=== PATIENT | male | born 1955 | race Caucasian/White ===

== ENCOUNTER 2019-06-01 12:19 | Day surgery (SDC) | payer MEDICARE, OTHER ==
[~2019-06-01] VITALS: Ht 182.9 cm; Wt 86.1 kg
[~2019-06-01 12:19] MED LIST: CEPH500 PO; Crutch1 EACH MISC; DOXA4; DULO60; GABA300; HYDACE5 PO; HYDACE7.5; IBUP200; IBUP600 PO; INDO25 PO; LEVO750; LOSA25 PO; METO100ER; MUPI2TC; NAPR500 PO; Norvasc10 MG; Omeprazole20 M1; Omeprazole20 M1 PO; PANT40; PRED5; Percocet 5-3251 EACH PO; SULTRIDS PO; SULTRISS; TRAM50 PO
== END 2019-06-01 14:40 | disposition home or self-care (01) ==
LOC: ORSCSDS 12:19
PROVIDERS: Internal Medicine Gastroenterology
PROC: 0DB68ZX Excision of Stomach, Via Natural or Artificial Opening Endoscopic, Diagnostic (ICD-10-PCS; principal; 2019-06-01 13:45)
DX: K74.60 Unspecified cirrhosis of liver (principal); K76.0 Fatty (change of) liver, not elsewhere classified; K22.2 Esophageal obstruction; K76.6 Portal hypertension; K31.89 Other diseases of stomach and duodenum; F17.210 Nicotine dependence, cigarettes, uncomplicated; Z79.899 Other long term (current) drug therapy
CPT/HCPCS: 87081; 88305; 88342; J2704; J7120

== ENCOUNTER 2020-05-12 07:14 | Day surgery (SDC) | payer OTHER ==
[~2020-05-12] VITALS: Ht 180.3 cm; Wt 88.0 kg
[~2020-05-12 07:14] MED LIST changes: +AMLO10 PO; +Aspirin EC81 MG PO; +Cilostazol100 MG PO; -DULO60; +DULO60 PO; -GABA300; +GABA300 PO; -LOSA25 PO; +LOSA50 PO; +MELO7.5; -METO100ER; +METO100ER PO; +MOBIC15 MG PO; -Norvasc10 MG; -PANT40; +PANT40 PO; -PRED5; +PRED5 PO
[2020-05-12 08:17] LABS: BASOPHILS PERCENT AUTO 1 % (0-2); EOSINOPHILS ABSOLUTE AUTO 0.28 K/mm3 (0.00-0.68); EOSINOPHILS PERCENT AUTO 2 % (0-6); Hematocrit 33.6 % (37.0-53.0); Hemoglobin 10.9 g/dL (13.5-17.5); IMMATURE GRAN ABSOLUTE AUTO 0.09 K/mm3 (0.00-0.10); IMMATURE GRAN PERCENT AUTO 1 % (0-1); LYMPHOCYTES ABSOLUTE AUTO 1.85 K/mm3 (0.84-5.20); LYMPHOCYTES PERCENT AUTO 13 % (21-46); MONOCYTES ABSOLUTE AUTO 0.98 K/mm3 (0.16-1.47); MONOCYTES PERCENT AUTO 7 % (4-13); Mean Corpuscular HGB 29.1 pg (26.0-34.0); Mean Corpuscular HGB Conc 32.4 g/dL (31.5-36.5); Mean Corpuscular Volume 90 fL (80-100); Mean Platelet Volume 8.6 fL (9.1-12.4); NEUTROPHILS ABSOLUTE AUTO 11.42 K/mm3 (1.96-9.15); NEUTROPHILS PERCENT AUTO 78 % (41-73); Platelet Count 350 K/mm3 (150-400); RDW Standard Deviation 45.9 fL (35.1-46.3); Red Blood Cell Count 3.75 M/mm3 (4.30-5.90); White Blood Cell Count 14.72 K/mm3 (4.00-11.30)
[2020-05-12 08:30] LABS: International Normalized Ratio 1.06; Prothrombin Time Results 11.3 Sec (9.7-11.5)
[2020-05-12 08:34] LABS: Anion Gap 7 mmol/L (6-16); Blood Urea Nitrogen 9 mg/dL (8-24); Bun/Creatinine Ratio 10.8 (12.0-20.0); CO2, Blood 26 mmol/L (21-32); Calcium, Blood 8.8 mg/dL (8.5-10.1); Chloride, Blood 97 mmol/L (98-108); Creatinine, Blood 0.83 mg/dL (0.60-1.20); Glomerular Filtration Rate >60 (60-); Glucose, Blood 102 mg/dL (70-99); Sodium, Blood 130 mmol/L (136-145)
--- NOTE | 2020-05-12 10:59 | NUR ---
1045 PATIENT RETURNED FROM THE [facility] S/P PERIPHERAL ANGIOGRAM VIA RIGHT RADIAL ARTERY. TR BAND IN PLACE WITH 12 ML OF AIR IN THE BAND, PLACED AT 1030. NO PAIN NOTED FORM THE PATIENT. PATIENT SITTING UP IN A RECLINER AND PLACE ON THE MONITOR.
--- NOTE | 2020-05-12 12:42 | NUR ---
1235 STARTED REMOVING AIR FROM THE TR BAND. NO BLEEDING NOTED.
--- NOTE | 2020-05-12 13:07 | NUR ---
1300 ALL AIR REMOVED FROM THE BAND. NO BLEEDING FROM THE WRIST NOTED. VVS. DR. HUIZAR AT THE [facility] AND SPOKE WITH THE PATIENT ABOUT HIS RESULTS AND THE PLAN OF CARE.
--- NOTE | 2020-05-12 13:10 | NUR ---
1310 REIVEWED ALL DISCHARGE INSTRUCTIONS WITH THE PATIENT AND ALL QUESTIOSN ANSWERED. PATIENT SIGNED ALL PAPERWORK. PIV REMOVED FROM THE LEFT AC, CATHETER INTACT. PRESSURE DRESSING APPLIED.
--- NOTE | 2020-05-12 13:35 | NUR ---
7555 PATIENT DRESSED AND ALL BELONGINGS GATHERED. DISCHARGE INSTRUCTIONS IN HAND AND PATIENT DISCHARGED HOME. WHEEL CHAIRED TO THE EXIT AND MET DAUGHTER TO DRIVE HIM HOME.
== END 2020-05-12 13:00 | disposition home or self-care (01) ==
LOC: MHTC 07:14
PROVIDERS: Internal Medicine Interventional Cardiology
DX: I70.213 Atherosclerosis of native arteries of extremities with intermittent claudication, bilateral legs (principal); I10 Essential (primary) hypertension; E78.5 Hyperlipidemia, unspecified; J45.909 Unspecified asthma, uncomplicated; Z79.899 Other long term (current) drug therapy; Z79.52 Long term (current) use of systemic steroids; Z79.82 Long term (current) use of aspirin
CPT/HCPCS: 36245; 75630; 75774; 76937; 80048; 85025; 85347; 85610; 99152; 99153; C1769; C1887; C1894; J1644; J2250; J3010; J7030; J7040; Q9967

== ENCOUNTER → 2020-07-21 | Outpatient (CLI) | payer OTHER ==
[2020-07-23 06:13] LABS: Stool Occult Bld Immuno 1 Negative (NEGATIVE); Stool Occult Bld Immuno 2 Negative (NEGATIVE)
== END | disposition home or self-care (01) ==
LOC: LAB 12:41 → LAB SHORT 12:41
PROVIDERS: Internal Medicine Gastroenterology
DX: D64.9 Anemia, unspecified (principal); Z79.899 Other long term (current) drug therapy
CPT/HCPCS: G0328

== ENCOUNTER 2020-07-22 06:32 | Day surgery (SDC) | payer OTHER ==
[~2020-07-22] VITALS: Ht 182.9 cm; Wt 88.0 kg
--- NOTE | 2020-07-22 10:35 | NUR ---
PT TR BAND FULLY DEFLATED FROM R RADIAL. VSS. NADN. NO BLEEDING OR HEMATOMA NOTED. PT VERBALIZES UNDERSTANDING WRITTEN AND VERBAL INSTRUCTIONS. CALL LIGHT WITHIN REACH.
--- NOTE | 2020-07-22 11:00 | NUR ---
PT AMBULATES TO RESTROOM AND BACK WITHOUT DIFF. VSS. NADN
--- NOTE | 2020-07-22 11:08 | NUR ---
PT TR BAND REMOVED. NO BLEEDING OR HEMATOMA NOTED. DOT DRESSING APPLIED. VSS. NADN. PT DENIES NEEDS. PT VERBALIZES UNDERSTANDING WRITTEN AND VERBAL ORDERS. PT DC TO HOME VIA WC BY DIAL A RIDE. PT DAUGHTER WILL BE AVAIL LATER FOR ANY ASSISTANCE.
== END 2020-07-22 11:15 | disposition home or self-care (01) ==
LOC: MHTC 06:32
PROC: 4A023N7 Measurement of Cardiac Sampling and Pressure, Left Heart, Percutaneous Approach (ICD-10-PCS; principal; 2020-07-22)
PROC: B201YZZ Plain Radiography of Multiple Coronary Arteries using Other Contrast (ICD-10-PCS; principal; 2020-07-22)
DX: I25.10 Atherosclerotic heart disease of native coronary artery without angina pectoris (principal); I70.213 Atherosclerosis of native arteries of extremities with intermittent claudication, bilateral legs; E78.5 Hyperlipidemia, unspecified; I10 Essential (primary) hypertension; J45.909 Unspecified asthma, uncomplicated; F17.210 Nicotine dependence, cigarettes, uncomplicated; I70.92 Chronic total occlusion of artery of the extremities; Z79.899 Other long term (current) drug therapy; Z79.82 Long term (current) use of aspirin; Z88.8 Allergy status to other drugs, medicaments and biological substances
CPT/HCPCS: 76937; 85347; 93005; 93010; 93458; 99152; C1769; C1894; J1644; J2250; J3010; J7030; J7050; Q9967

== ENCOUNTER 2021-03-02 00:19 | Day surgery (SDC) | payer OTHER ==
[~2021-03-02 00:19] MED LIST changes: +ATOR20 PO; +B-1100 M1 PO; +DOXAZOSIN MESYLA4 MG PO; -LOSA50 PO; +LOSARTAN POTAS100 M1 PO; +PANT20 PO; +PLAVIX75 MG PO; +ROSUVASTATIN CA20 MG PO
== END 2021-03-02 22:47 | disposition home or self-care (01) ==
LOC: WOUND 00:19
DX: T81.31XD Disruption of external operation (surgical) wound, not elsewhere classified, subsequent encounter (principal); F17.210 Nicotine dependence, cigarettes, uncomplicated; Z88.8 Allergy status to other drugs, medicaments and biological substances
CPT/HCPCS: A9270; G0463

== ENCOUNTER → 2021-03-04 | Outpatient (CLI) | payer OTHER ==
[~2021-03-04] MED LIST changes: +Norco 7.5-3251 EACH PO; +SUCR1 PO
[2021-03-04 13:57] LABS: Source, Urine Clean Catch
[2021-03-04 14:48] LABS: Appearance, Urine Cloudy (Clear); Blood, Urine 3+ (Neg); Color, Urine Yellow (P-Yellow); Glucose Qualitative, Urine Neg (Neg); Ketones, Urine 1+ (Neg); Leukocyte Esterase, Urine 3+ (Neg); Nitrite, Urine Neg (Neg); Protein, Urine 2+ (Neg); Urobilinogen, Urine 3+ (Normal)
[2021-03-04 14:59] LABS: Bilirubin, Urine 2+ (Neg); White Blood Cells, Urine TNTC /hpf (0-5)
[2021-03-04 15:00] LABS: Bacteria Many /hpf; Squamous Epithelial Cells Few /hpf (Few)
== END | disposition home or self-care (01) ==
LOC: LAB 13:43 → LAB SHORT 13:43 → LAB FUT 06-03 12:25
PROVIDERS: Physician Assistant Surgical
DX: N39.0 Urinary tract infection, site not specified (principal)
CPT/HCPCS: 81001; 87077; 87086; 87186

== ENCOUNTER 2021-03-10 03:05 | Day surgery (SDC) | payer OTHER ==
[~2021-03-10 03:05] MED LIST changes: -Norco 7.5-3251 EACH PO; -SUCR1 PO
== END 2021-03-10 23:02 | disposition home or self-care (01) ==
LOC: WOUND 03:05
DX: T81.31XD Disruption of external operation (surgical) wound, not elsewhere classified, subsequent encounter (principal); S31.105S Unspecified open wound of abdominal wall, periumbilic region without penetration into peritoneal cavity, sequela; X58.XXXS Exposure to other specified factors, sequela
CPT/HCPCS: G0463

== ENCOUNTER 2021-03-17 04:51 | Day surgery (SDC) | payer OTHER ==
[2021-03-17] MEDS ORDERED: PANT40 PO (19:27)
[2021-03-17] MEDS ORDERED: SUCR1 PO (20:45)
[2021-03-17] MEDS ORDERED: Norco 7.5-3251 EACH PO (20:45)
== END 2021-03-17 23:39 | disposition home or self-care (01) ==
LOC: WOUND 04:51
DX: T81.31XD Disruption of external operation (surgical) wound, not elsewhere classified, subsequent encounter (principal); S31.105S Unspecified open wound of abdominal wall, periumbilic region without penetration into peritoneal cavity, sequela; X58.XXXS Exposure to other specified factors, sequela
CPT/HCPCS: G0463

== ENCOUNTER 2021-03-17 14:08 | Emergency (ER) | payer OTHER ==
[~2021-03-17] VITALS: Ht 175.3 cm; Wt 68.0 kg
[2021-03-17 14:52] LABS: BASOPHILS PERCENT AUTO 1 % (0-2); EOSINOPHILS ABSOLUTE AUTO 0.23 K/mm3 (0.00-0.68); EOSINOPHILS PERCENT AUTO 2 % (0-6); Hematocrit 29.7 % (37.0-53.0); Hemoglobin 9.8 g/dL (13.5-17.5); IMMATURE GRAN ABSOLUTE AUTO 0.07 K/mm3 (0.00-0.10); IMMATURE GRAN PERCENT AUTO 1 % (0-1); LYMPHOCYTES ABSOLUTE AUTO 3.14 K/mm3 (0.84-5.20); LYMPHOCYTES PERCENT AUTO 25 % (21-46); MONOCYTES PERCENT AUTO 9 % (4-13); Mean Corpuscular HGB 27.1 pg (26.0-34.0); Mean Corpuscular Volume 82 fL (80-100); Mean Platelet Volume 9.2 fL (9.1-12.4); NEUTROPHILS ABSOLUTE AUTO 8.03 K/mm3 (1.96-9.15); NEUTROPHILS PERCENT AUTO 63 % (41-73); Platelet Count 461 K/mm3 (150-400); RDW Coefficient Variation 18.4 % (11.7-14.2); RDW Standard Deviation 54.4 fL (35.1-46.3); Red Blood Cell Count 3.62 M/mm3 (4.30-5.90); White Blood Cell Count 12.67 K/mm3 (4.00-11.30)
[2021-03-17 15:12] LABS: Alanine Aminotransfer (ALT/SGP 59 U/L (12-78); Albumin, Blood 2.1 g/dL (3.4-5.0); Albumin/Globulin Ratio 0.4 (0.8-1.8); Alk Phos 138 U/L (50-136); Anion Gap 7 mmol/L (6-16); Aspartate Aminotrans (AST/SGOT 71 U/L (12-37); Bilirubin, Total 0.6 mg/dL (0.1-1.0); Blood Urea Nitrogen 7 mg/dL (8-24); Bun/Creatinine Ratio 9.2 (12.0-20.0); CO2, Blood 24 mmol/L (21-32); Calcium, Blood 8.5 mg/dL (8.5-10.1); Chloride, Blood 101 mmol/L (98-108); Creatinine, Blood 0.76 mg/dL (0.60-1.20); Globulin, Blood 5.2 g/dL (2.2-4.0); Glomerular Filtration Rate >60 (60-); Glucose, Blood 95 mg/dL (70-99); Potassium, Blood 4.3 mmol/L (3.5-5.5); Sodium, Blood 132 mmol/L (136-145); Total Protein, Blood 7.3 g/dL (6.4-8.2); Troponin I <0.015 ng/mL (0.000-0.040)
[2021-03-17] MEDS ORDERED: PANT40 PO (19:27)
[2021-03-17] MEDS ORDERED: Norco 7.5-3251 EACH PO (20:45)
[2021-03-17] MEDS ORDERED: SUCR1 PO (20:45)
[2021-03-18 00:45] LABS: Calcium, Ionized (POC) 0.94 mmol/L (1.10-1.46); Chloride (POC) 98 mmol/L (98-108); Creatinine (POC) 0.6 mg/dL (0.8-1.3); Glucose (ISTAT POC) 86 mg/dL (70-99); Hemoglobin (POC) 9.5 g/dL (13.5-17.5); Potassium (POC) 7.6 mmol/L (3.5-5.5); Sodium (POC) 129 mmol/L (135-148); Total CO2 (POC) 30 mmol/L (21-32)
[2021-03-18 00:58] LABS: Anion Gap 5 mmol/L (6-16); Blood Urea Nitrogen 7 mg/dL (8-24); Bun/Creatinine Ratio 10.4 (12.0-20.0); CO2, Blood 26 mmol/L (21-32); Calcium, Blood 8.2 mg/dL (8.5-10.1); Chloride, Blood 99 mmol/L (98-108); Creatinine, Blood 0.67 mg/dL (0.60-1.20); Glomerular Filtration Rate >60 (60-); Glucose, Blood 97 mg/dL (70-99); Potassium, Blood 3.8 mmol/L (3.5-5.5); Sodium, Blood 130 mmol/L (136-145)
== END 2021-03-18 01:37 | disposition home or self-care (01) ==
LOC: ER 14:08
PROVIDERS: Emergency Medicine; Physician Assistant
DX: R42 Dizziness and giddiness (principal); I10 Essential (primary) hypertension; F17.200 Nicotine dependence, unspecified, uncomplicated; Z88.8 Allergy status to other drugs, medicaments and biological substances; Z79.899 Other long term (current) drug therapy
CPT/HCPCS: 80047; 80048; 80053; 83880; 84484; 85014; 85025; 93005; 93010; 99284-25; J7030

== ENCOUNTER 2021-03-27 04:13 | Day surgery (SDC) | payer OTHER ==
[~2021-03-27 04:13] MED LIST changes: +Norco 7.5-3251 EACH PO; +SUCR1 PO
== END 2021-03-28 00:31 | disposition home or self-care (01) ==
LOC: WOUND 04:13
DX: T81.31XD Disruption of external operation (surgical) wound, not elsewhere classified, subsequent encounter (principal); S31.105S Unspecified open wound of abdominal wall, periumbilic region without penetration into peritoneal cavity, sequela; X58.XXXS Exposure to other specified factors, sequela; I72.3 Aneurysm of iliac artery
CPT/HCPCS: G0463

== ENCOUNTER 2021-09-18 22:28 | Inpatient (IN) | payer OTHER ==
[~2021-09-18] VITALS: Ht 180.3 cm; Wt 76.3 kg
[2021-09-18 23:02] LABS: BASOPHILS ABSOLUTE AUTO 0.09 K/mm3 (0.00-0.23); BASOPHILS PERCENT AUTO 1 % (0-2); EOSINOPHILS PERCENT AUTO 1 % (0-6); Hematocrit 25.3 % (37.0-53.0); Hemoglobin 8.4 g/dL (13.5-17.5); IMMATURE GRAN ABSOLUTE AUTO 0.13 K/mm3 (0.00-0.10); IMMATURE GRAN PERCENT AUTO 1 % (0-1); LYMPHOCYTES ABSOLUTE AUTO 2.98 K/mm3 (0.84-5.20); LYMPHOCYTES PERCENT AUTO 18 % (21-46); MONOCYTES ABSOLUTE AUTO 1.35 K/mm3 (0.16-1.47); MONOCYTES PERCENT AUTO 8 % (4-13); Mean Corpuscular HGB Conc 33.2 g/dL (31.5-36.5); Mean Corpuscular Volume 102 fL (80-100); Mean Platelet Volume 9.2 fL (9.1-12.4); NEUTROPHILS ABSOLUTE AUTO 12.24 K/mm3 (1.96-9.15); NEUTROPHILS PERCENT AUTO 73 % (41-73); Platelet Count 377 K/mm3 (150-400); RDW Coefficient Variation 14.4 % (11.7-14.2); RDW Standard Deviation 52.8 fL (35.1-46.3); Red Blood Cell Count 2.47 M/mm3 (4.30-5.90); White Blood Cell Count 16.89 K/mm3 (4.00-11.30)
[2021-09-18 23:16] LABS: Alanine Aminotransfer (ALT/SGP 21 U/L (12-78); Albumin, Blood 1.8 g/dL (3.4-5.0); Albumin/Globulin Ratio 0.4 (0.8-1.8); Alk Phos 153 U/L (50-136); Anion Gap 7 mmol/L (6-16); Aspartate Aminotrans (AST/SGOT 29 U/L (12-37); Bilirubin, Total 0.5 mg/dL (0.1-1.0); Blood Urea Nitrogen 22 mg/dL (8-24); Bun/Creatinine Ratio 39.5 (12.0-20.0); CO2, Blood 27 mmol/L (21-32); Calcium, Blood 8.1 mg/dL (8.5-10.1); Chloride, Blood 102 mmol/L (98-108); Creatinine, Blood 0.56 mg/dL (0.60-1.20); Globulin, Blood 4.4 g/dL (2.2-4.0); Glomerular Filtration Rate >60 (60-); Glucose, Blood 140 mg/dL (70-99); Potassium, Blood 4.7 mmol/L (3.5-5.5); Sodium, Blood 136 mmol/L (136-145); Total Protein, Blood 6.2 g/dL (6.4-8.2)
[2021-09-19] LABS: International Normalized Ratio 1.14; Prothrombin Time Results 11.9 Sec (9.7-11.5)
[2021-09-19 00:52] LABS: Influenza A, PCR NEGATIVE (NEGATIVE); Influenza B, PCR NEGATIVE (NEGATIVE); Resp Syncytial Virus, PCR NEGATIVE (NEGATIVE); SARS-Cov-2 (COVID-19) PCR, MMC NEGATIVE (NEGATIVE)
[2021-09-19 02:15] LABS: BASOPHILS ABSOLUTE AUTO 0.09 K/mm3 (0.00-0.23); BASOPHILS PERCENT AUTO 1 % (0-2); EOSINOPHILS ABSOLUTE AUTO 0.01 K/mm3 (0.00-0.68); EOSINOPHILS PERCENT AUTO 0 % (0-6); Hematocrit 23.4 % (37.0-53.0); Hemoglobin 7.9 g/dL (13.5-17.5); IMMATURE GRAN PERCENT AUTO 2 % (0-1); LYMPHOCYTES ABSOLUTE AUTO 2.32 K/mm3 (0.84-5.20); LYMPHOCYTES PERCENT AUTO 13 % (21-46); MONOCYTES ABSOLUTE AUTO 1.03 K/mm3 (0.16-1.47); MONOCYTES PERCENT AUTO 6 % (4-13); Mean Corpuscular HGB 34.1 pg (26.0-34.0); Mean Corpuscular HGB Conc 33.8 g/dL (31.5-36.5); Mean Corpuscular Volume 101 fL (80-100); Mean Platelet Volume 9.4 fL (9.1-12.4); NEUTROPHILS ABSOLUTE AUTO 14.43 K/mm3 (1.96-9.15); NEUTROPHILS PERCENT AUTO 79 % (41-73); Platelet Count 361 K/mm3 (150-400); RDW Coefficient Variation 14.4 % (11.7-14.2); RDW Standard Deviation 51.7 fL (35.1-46.3); Red Blood Cell Count 2.32 M/mm3 (4.30-5.90); White Blood Cell Count 18.18 K/mm3 (4.00-11.30)
[2021-09-19 06:21] LABS: Hematocrit 21.7 % (37.0-53.0); Hemoglobin 7.3 g/dL (13.5-17.5)
[2021-09-19 06:50] LABS: Alanine Aminotransfer (ALT/SGP 18 U/L (12-78); Albumin, Blood 1.9 g/dL (3.4-5.0); Albumin/Globulin Ratio 0.5 (0.8-1.8); Alk Phos 137 U/L (50-136); Anion Gap 8 mmol/L (6-16); Aspartate Aminotrans (AST/SGOT 24 U/L (12-37); Bilirubin, Total 0.6 mg/dL (0.1-1.0); Blood Urea Nitrogen 30 mg/dL (8-24); Bun/Creatinine Ratio 41.2 (12.0-20.0); CO2, Blood 26 mmol/L (21-32); Calcium, Blood 8.4 mg/dL (8.5-10.1); Chloride, Blood 102 mmol/L (98-108); Creatinine, Blood 0.73 mg/dL (0.60-1.20); Globulin, Blood 3.6 g/dL (2.2-4.0); Glomerular Filtration Rate >60 (60-); Glucose, Blood 151 mg/dL (70-99); Potassium, Blood 5.2 mmol/L (3.5-5.5); Sodium, Blood 136 mmol/L (136-145); Total Protein, Blood 5.5 g/dL (6.4-8.2)
--- NOTE | 2021-09-19 07:22 | NUR ---
PT ARRIVED ON THE UNIT AT 0500 AND WAS VOMITING BROWN EMESIS. PT. AOX4 AND HAD 3 LOOSE STOOLS WITH BLOOD. PT. IS NPO AND TIRED BUT ABLE TO ANSWER MOST ASSESSMENT/ADMISSION QUESTIONS. PT. DENIES ANY NEEDS AT THE MOMENT AND BELONGINGS AT BEDSIDE WITH THE PT. REPORT GIVEN.
[2021-09-19 10:13] LABS: Hematocrit 18.4 % (37.0-53.0)
--- NOTE | 2021-09-19 10:57 | NUR ---
PT OFF FLOOR FOR PROCEDURE PT TAKEN DOWN BY REBEL TO HAVE EGD.
--- NOTE | 2021-09-19 11:16 | NUR ---
09/19/21 1116 Brenton Honeycutt History, Chart, Medications and Allergies reviewed before start of procedure. Patient confirms NPO status and agrees with scheduled surgery. 3-LEAD EKG REVIEWED WITH PHYSICIAN PRIOR TO START OF PROCEDURE. MONITOR INTACT WITH CONTINUOUS PULSE OXIMETRY AND INTERMITTENT BP. PATIENT DETERMINED TO BE ASA APPROPRIATE FOR PROPOFOL SEDATION PRIOR TO START OF PROCEDURE BY DR. MACIAS.
--- NOTE | 2021-09-19 12:09 | NUR ---
TRANSFERING TO PCU PT NOT COMING BACK TO MED FLOOR POST EGD PROCEDURE. HGB OF 6. TRANSFERING TO PCU. REPORT CALLED TO LUCY DANIEL. BELONGINGS GATHERED AND TRANSPORTED TO PCU FOR PT.
--- NOTE | 2021-09-19 12:44 | NUR ---
ARRIVAL TO PCU PATIENT ARRIVED TO PCU APROX 1215 FROM DAY SURGERY.PATIENT IA A/OX4. VSS. MD BURDEN INTO SEE PATIENT, AND AN ORDER FOR 2 UNITS OF BLOOD TO BE TRANSFUSED WAS PUT IN. AWAITING BLOOD TO ARRIVE. PATIENT REPORTS NO CHEST PAIN, PAIN, OR SOB. MED FLOOR LUCY PURVIS IS GOING TO CALL FAMILY TO NOTIFY OF NEW ROOM. BED IN LOWEST POSITION AND CALL LIGHT WITHIN REACH. WILL CONTINUE TO MONITOR AND PROVIDE CARE.
--- NOTE | 2021-09-19 13:03 | NUR ---
FIRST UNIT OF PRBC FIRST UNIT OF PRBC STARTED, WENT OVER SIGNS AND SYMPTOMS OF A BLOOD TRANSFUSION REACTION. PROVIDED EDUCATION TO WHY THE BLOOD TRANSFUSION IS BEING DONE. WILL CONTINUE TO MONITOR AND PROVIDE CARE.
--- NOTE | 2021-09-19 16:17 | NUR ---
2ND BLOOD TRANSFUSING THIS RN STOPPED THE FIRST TRANSFUSION. NO COMPLICATIONS FOR THE FIRST TRANSFUSION. ENDED AT 1610 APROX, ACTUAL TIME DOCUMENTATED IN TRANSFUSIONS. THIS RN STARTED TRANFUSION AT 1615 AND WAS DOUBEL CHECKED WITH ELLEN AYALA. PATIENT EDUCATED ON TRANSFUSION REACTIONS AND THIS RN WILL BE WITH PATIENT THE FIRST 15 MINS.
--- NOTE | 2021-09-19 17:11 | NUR ---
REPORT TO [facility] RN THIS RN GAVE REPORT TO DEEPA RN AT [facility]. THIS RN INFORMED HIM THAT EMS WILL BE HERE IN APROX 30 MINS TO NURSING EDUCATOR THE PATIENT.
--- NOTE | 2021-09-19 17:52 | NUR ---
TRANSFER EMS ARRIVED FOR PATIENT AND TOOK PATIENT VIA GURNY. PATIENT BELONINGS WITH EMS. DAUGHTER WALKED OUT WITH EMS. REPORT GIVEN TO EMS TEAM. PAPERS WITH PATIENT FOR TRANSFER.
== END 2021-09-19 17:54 | disposition short-term general hospital (02) | DRG 379 ==
LOC: ER 22:28 → MEDS 09-19 02:38 → PCU 09-19 12:11
PROVIDERS: Family Medicine; Internal Medicine Gastroenterology; Student in an Organized Health Care Education/Training Program; ADMIT Internal Medicine
PROC: 0DJ08ZZ Inspection of Upper Intestinal Tract, Via Natural or Artificial Opening Endoscopic (ICD-10-PCS; 2021-09-19)
PROC: 30233N1 Transfusion of Nonautologous Red Blood Cells into Peripheral Vein, Percutaneous Approach (ICD-10-PCS; principal; 2021-09-19 12:30)
DX: K92.1 Melena (principal); K70.30 Alcoholic cirrhosis of liver without ascites; G89.29 Other chronic pain; I10 Essential (primary) hypertension; Z88.8 Allergy status to other drugs, medicaments and biological substances; F10.10 Alcohol abuse, uncomplicated; I73.9 Peripheral vascular disease, unspecified; F17.210 Nicotine dependence, cigarettes, uncomplicated; M19.90 Unspecified osteoarthritis, unspecified site; Z98.890 Other specified postprocedural states; I25.10 Atherosclerotic heart disease of native coronary artery without angina pectoris; Z95.1 Presence of aortocoronary bypass graft; Z79.899 Other long term (current) drug therapy; D64.9 Anemia, unspecified
CPT/HCPCS: 0241U; 36415; 36430; 80053; 82105; 82140; 82272; 85014; 85018; 85025; 85610; 85730; 86850; 86900; 86901; 86923; 93005; 93010; 96365; 96366; 96367; 96368; 96375; 99285-25; A9270; C9113; J0696; J2250; J2354; J2704; J2765; J7030; J7050; J7120; P9016; P9046

== ENCOUNTER → 2023-08-19 | Outpatient (CLI) | payer OTHER ==
[~2023-08-19] MED LIST changes: +LOSA50 PO
[2023-08-19 14:45] LABS: Stool Occult Bld Immuno 1 Negative (NEGATIVE); Stool Occult Bld Immuno 2 Negative (NEGATIVE)
== END ==
LOC: LAB SHORT 12:29 → LAB 12:29
PROVIDERS: Internal Medicine Gastroenterology
DX: Z12.11 Encounter for screening for malignant neoplasm of colon (principal)
CPT/HCPCS: 82274

== ENCOUNTER 2023-09-20 17:27 | Emergency (ER) | payer OTHER ==
[~2023-09-20] VITALS: Ht 180.3 cm; Wt 71.2 kg
[2023-09-20 17:58] LABS: BASOPHILS ABSOLUTE AUTO 0.05 K/mm3 (0.00-0.23); BASOPHILS PERCENT AUTO 0 % (0-2); EOSINOPHILS ABSOLUTE AUTO 0.34 K/mm3 (0.00-0.68); EOSINOPHILS PERCENT AUTO 2 % (0-6); Hematocrit 28.3 % (37.0-53.0); Hemoglobin 10.1 g/dL (13.5-17.5); IMMATURE GRAN ABSOLUTE AUTO 0.08 K/mm3 (0.00-0.10); IMMATURE GRAN PERCENT AUTO 1 % (0-1); LYMPHOCYTES ABSOLUTE AUTO 1.44 K/mm3 (0.84-5.20); LYMPHOCYTES PERCENT AUTO 8 % (21-46); MONOCYTES ABSOLUTE AUTO 1.87 K/mm3 (0.16-1.47); MONOCYTES PERCENT AUTO 11 % (4-13); Mean Corpuscular HGB 37.3 pg (26.0-34.0); Mean Corpuscular HGB Conc 35.7 g/dL (31.5-36.5); Mean Corpuscular Volume 104 fL (80-100); Mean Platelet Volume 8.7 fL (9.1-12.4); NEUTROPHILS ABSOLUTE AUTO 13.91 K/mm3 (1.96-9.15); NEUTROPHILS PERCENT AUTO 79 % (41-73); Platelet Count 369 K/mm3 (150-400); RDW Coefficient Variation 15.2 % (11.7-14.2); RDW Standard Deviation 58.3 fL (35.1-46.3); Red Blood Cell Count 2.71 M/mm3 (4.30-5.90); White Blood Cell Count 17.69 K/mm3 (4.00-11.30)
[2023-09-20 18:22] LABS: Albumin, Blood 1.8 g/dL (3.4-5.0); Albumin/Globulin Ratio 0.4 (0.8-1.8); Bilirubin, Total 0.6 mg/dL (0.1-1.0); Bun/Creatinine Ratio 5.8 (12.0-20.0); Calcium, Blood 7.4 mg/dL (8.5-10.1); Creatinine, Blood 1.39 mg/dL (0.60-1.20); Globulin, Blood 4.9 g/dL (2.2-4.0); Potassium, Blood 3.4 mmol/L (3.5-5.5); Total Protein, Blood 6.7 g/dL (6.4-8.2)
[2023-09-20 20:55] VITALS: BP 104/65
[2023-09-20] MEDS ORDERED: Amoxicillin875 MG PO (23:20)
[2023-09-20] MEDS ORDERED: ONDA4ODT MM (23:20)
== END 2023-09-20 23:33 | disposition home or self-care (01) ==
LOC: ER 17:27
PROVIDERS: Physician Assistant
DX: J18.1 Lobar pneumonia, unspecified organism (principal); I10 Essential (primary) hypertension; F17.200 Nicotine dependence, unspecified, uncomplicated; Z88.8 Allergy status to other drugs, medicaments and biological substances; Z79.899 Other long term (current) drug therapy
CPT/HCPCS: 71046; 80053; 85025; 99284-25; A9270

== ENCOUNTER 2024-02-21 09:15 | Inpatient (IN) | payer OTHER ==
[~2024-02-21] VITALS: Ht 180.3 cm; Wt 75.8 kg
[2024-02-25 07:32] VITALS: BP 137/92
== END 2024-02-25 12:00 | disposition home or self-care (01) | DRG 641 ==
LOC: ER 09:15 → MEDS 12:53
PROVIDERS: ADMIT Family Medicine
PROC: 30233N1 Transfusion of Nonautologous Red Blood Cells into Peripheral Vein, Percutaneous Approach (ICD-10-PCS; principal; 2024-02-22)
DX: E87.6 Hypokalemia (principal); E83.51 Hypocalcemia; F10.10 Alcohol abuse, uncomplicated; I25.10 Atherosclerotic heart disease of native coronary artery without angina pectoris; I10 Essential (primary) hypertension; J44.9 Chronic obstructive pulmonary disease, unspecified; E78.5 Hyperlipidemia, unspecified; J43.9 Emphysema, unspecified; E83.42 Hypomagnesemia; K70.0 Alcoholic fatty liver; I73.9 Peripheral vascular disease, unspecified; I71.20 Thoracic aortic aneurysm, without rupture, unspecified; M19.90 Unspecified osteoarthritis, unspecified site; F17.210 Nicotine dependence, cigarettes, uncomplicated; D63.8 Anemia in other chronic diseases classified elsewhere; R94.31 Abnormal electrocardiogram [ECG] [EKG]; Z88.0 Allergy status to penicillin; Z98.890 Other specified postprocedural states; Z88.8 Allergy status to other drugs, medicaments and biological substances; Z79.51 Long term (current) use of inhaled steroids; Z86.14 Personal history of Methicillin resistant Staphylococcus aureus infection; I25.2 Old myocardial infarction; Z79.899 Other long term (current) drug therapy; Z79.2 Long term (current) use of antibiotics

== ENCOUNTER → 2024-03-18 | Outpatient (CLI) | payer OTHER ==
[~2024-03-18] MED LIST changes: +ALBU8HFA2 INH; +Amoxicillin875 MG PO; +Aspir 8181 MG PO; +CALCIUM PO; +CEFD300 PO; +FAMO20 PO; +FOLIC ACID0.4 MG PO; +LOPE2C PO; -LOSA50 PO; +MAGNESIUM OXID500 MG PO; +NICO21TP TOP; +ONDA4 PO; +ONDA4ODT MM; +Ondansetron Odt8 MG MM; +[UNRECOGNIZED DRUG - OTHER] PO
[2024-03-20 15:13] LABS: Adenovirus F 40/41 Not Detected (NOT DETECT); Astrovirus Not Detected (NOT DETECT); Campylobacter Sp Not Detected (NOT DETECT); Cryptosporidium Not Detected (NOT DETECT); Cyclospora Cayetanensis Not Detected (NOT DETECT); E. Coli O157 Not Detected (NOT DETECT); Entamoeba Histolytica Not Detected (NOT DETECT); Enteroaggregative E. coli-EAEC Not Detected (NOT DETECT); Enteropathogenic E. coli-EPEC Not Detected (NOT DETECT); Enterotoxigenic E. coli-ETEC Not Detected (NOT DETECT); Giardia Lamblia Not Detected (NOT DETECT); Norovirus GI/GII Detected (NOT DETECT); Plesiomonas Shigelloides Not Detected (NOT DETECT); Rotavirus A Not Detected (NOT DETECT); Salmonella Sp Not Detected (NOT DETECT); Sapovirus Not Detected (NOT DETECT); Shiga Toxin-prod E. coli-STEC Not Detected (NOT DETECT); Shigella/Enteroin E. coli-EIEC Not Detected (NOT DETECT); Vibrio Cholerae Not Detected (NOT DETECT); Vibrio Sp Not Detected (NOT DETECT); Yersinia Enterocolitica Not Detected (NOT DETECT)
== END ==
LOC: LAB 13:00 → LAB SHORT 13:00
PROVIDERS: Physician Assistant
DX: R19.7 Diarrhea, unspecified (principal)
CPT/HCPCS: 87507

== ENCOUNTER 2024-04-01 23:41 | Emergency (ER) | payer OTHER ==
[~2024-04-01] VITALS: Ht 180.3 cm; Wt 61.2 kg
[~2024-04-01 23:41] MED LIST changes: -CEFD300 PO; -Ondansetron Odt8 MG MM
[2024-04-01] MEDS ORDERED: Ondansetron HCl 2 MG / ML 2ML Vial IV ONE (23:55)
[2024-04-01] MEDS ORDERED: NS 1,000 ML IV SCH (23:55)
[2024-04-02 00:01] LABS: BASOPHILS ABSOLUTE AUTO 0.05 K/mm3 (0.00-0.23); BASOPHILS PERCENT AUTO 0 % (0-2); EOSINOPHILS ABSOLUTE AUTO 0.04 K/mm3 (0.00-0.68); EOSINOPHILS PERCENT AUTO 0 % (0-6); Hematocrit 34.5 % (37.0-53.0); Hemoglobin 11.9 g/dL (13.5-17.5); IMMATURE GRAN ABSOLUTE AUTO 0.11 K/mm3 (0.00-0.10); IMMATURE GRAN PERCENT AUTO 1 % (0-1); LYMPHOCYTES ABSOLUTE AUTO 1.46 K/mm3 (0.84-5.20); LYMPHOCYTES PERCENT AUTO 7 % (21-46); MONOCYTES ABSOLUTE AUTO 1.59 K/mm3 (0.16-1.47); MONOCYTES PERCENT AUTO 8 % (4-13); Mean Corpuscular HGB Conc 34.5 g/dL (31.5-36.5); Mean Corpuscular Volume 99 fL (80-100); Mean Platelet Volume 8.9 fL (9.1-12.4); NEUTROPHILS ABSOLUTE AUTO 16.49 K/mm3 (1.96-9.15); NEUTROPHILS PERCENT AUTO 83 % (41-73); Platelet Count 338 K/mm3 (150-400); RDW Coefficient Variation 12.8 % (11.7-14.2); RDW Standard Deviation 45.9 fL (35.1-46.3); White Blood Cell Count 19.74 K/mm3 (4.00-11.30)
[2024-04-02 00:18] LABS: Albumin, Blood 1.9 g/dL (3.4-5.0); Albumin/Globulin Ratio 0.5 (0.8-1.8); Bilirubin, Total 0.5 mg/dL (0.1-1.0); Bun/Creatinine Ratio 16.2 (12.0-20.0); Calcium, Blood 7.7 mg/dL (8.5-10.1); Creatinine, Blood 1.17 mg/dL (0.60-1.20); Globulin, Blood 4.2 g/dL (2.2-4.0); Magnesium, Blood 2.9 mg/dL (1.6-2.4); Potassium, Blood 3.7 mmol/L (3.5-5.5); Total Protein, Blood 6.1 g/dL (6.4-8.2)
[2024-04-02] MEDS ORDERED: Ketorolac Tromethamine 15mg Vial IV ONE (00:50)
[2024-04-02 02:08] LABS: Source, Urine Voided
[2024-04-02 02:10] LABS: Blood, Urine 2+ (Neg); Glucose Qualitative, Urine Neg (Neg); Ketones, Urine 3+ (Neg); Leukocyte Esterase, Urine 1+ (Neg); Nitrite, Urine Neg (Neg); Protein, Urine 1+ (Neg); Specific Gravity, Urine 1.015 (1.003-1.022); Urobilinogen, Urine NORM (Normal)
[2024-04-02 02:28] LABS: Bilirubin, Urine 1+ (Neg)
[2024-04-02 02:29] LABS: Appearance, Urine Hazy (Clear); Bacteria Few /hpf; Color, Urine Amber (P-Yellow); Red Blood Cells, Urine 0-2 /hpf (0-2); Squamous Epithelial Cells Rare /hpf (Few); Transitional Epithelial Cells Few /hpf (0-Rare); WBC Cast 0-2 /lpf (0)
[2024-04-02] MEDS ORDERED: NS 1,000 ML IV SCH (02:35)
[2024-04-02] MEDS ORDERED: Ondansetron Odt8 MG MM (02:37)
[2024-04-02] MEDS ORDERED: CefTRIAXone Sodium 1,000 MG in NS 100 ML IV ONE (02:40)
[2024-04-02] MEDS ORDERED: CEFD300 PO (02:41)
[2024-04-02] MEDS ORDERED: Mag Hydrox/AL Hydrox/Simeth 30 ML UDC PO ONE (03:25)
[2024-04-02 04:00] VITALS: BP 140/78
== END 2024-04-02 04:45 | disposition home or self-care (01) ==
LOC: ER 23:41
PROVIDERS: Emergency Medicine
DX: N39.0 Urinary tract infection, site not specified (principal); R11.2 Nausea with vomiting, unspecified; E86.0 Dehydration; F17.200 Nicotine dependence, unspecified, uncomplicated; I10 Essential (primary) hypertension; I25.2 Old myocardial infarction; Z79.899 Other long term (current) drug therapy; Z79.82 Long term (current) use of aspirin; Z88.0 Allergy status to penicillin; Z88.1 Allergy status to other antibiotic agents; Z91.040 Latex allergy status; Z88.8 Allergy status to other drugs, medicaments and biological substances
CPT/HCPCS: 80053; 81001; 83605; 83735; 84484; 85025; 87086; 93005; 93010; 96361; 96365; 96375; 99284; A9270; J0696; J1885; J2405; J7030

== ENCOUNTER 2025-06-03 09:53 | Emergency (ER) | payer OTHER ==
[~2025-06-03] VITALS: Ht 180.3 cm; Wt 63.5 kg
[~2025-06-03 09:53] MED LIST changes: +CEFD300 PO; +Ondansetron Odt8 MG MM
[2025-06-03 10:11] VITALS: BP 159/83
[2025-06-03 10:32] LABS: BASOPHILS ABSOLUTE AUTO 0.10 K/mm3 (0.00-0.23); BASOPHILS PERCENT AUTO 1 % (0-2); EOSINOPHILS ABSOLUTE AUTO 0.15 K/mm3 (0.00-0.68); EOSINOPHILS PERCENT AUTO 1 % (0-6); Hematocrit 24.4 % (37.0-53.0); Hemoglobin 8.2 g/dL (13.5-17.5); IMMATURE GRAN ABSOLUTE AUTO 0.03 K/mm3 (0.00-0.10); IMMATURE GRAN PERCENT AUTO 0 % (0-1); LYMPHOCYTES ABSOLUTE AUTO 1.26 K/mm3 (0.84-5.20); LYMPHOCYTES PERCENT AUTO 10 % (21-46); MONOCYTES ABSOLUTE AUTO 0.60 K/mm3 (0.16-1.47); MONOCYTES PERCENT AUTO 5 % (4-13); Mean Corpuscular HGB Conc 33.6 g/dL (31.5-36.5); Mean Corpuscular Volume 80 fL (80-100); NEUTROPHILS ABSOLUTE AUTO 10.39 K/mm3 (1.96-9.15); NEUTROPHILS PERCENT AUTO 83 % (41-73); NRBC ABSOLUTE 0.00 K/mm3 (0.00-0.02); NRBC Auto 0.0 /100 WBC (0.0-0.2); Platelet Count 384 K/mm3 (150-400); RDW Coefficient Variation 16.2 % (11.7-14.2); RDW Standard Deviation 47.2 fL (35.1-46.3)
[2025-06-03 10:43] LABS: Anion Gap 6.0 mmol/L (3-11); Blood Urea Nitrogen 9.0 mg/dL (8-24); CO2, Blood 27.0 mmol/L (21-32); Calcium, Blood 8.5 mg/dL (8.5-10.1); Chloride, Blood 99.0 mmol/L (98-108); Creatinine, Blood 0.64 mg/dL (0.60-1.20); Glucose, Blood 87.0 mg/dL (70-99); Potassium, Blood 4.2 mmol/L (3.5-5.5); Sodium, Blood 128.0 mmol/L (136-145)
[2025-06-03 10:43] LABS: Source, Urine Clean Catch
[2025-06-03 10:51] LABS: Bilirubin, Urine Neg (Neg); Color, Urine Yellow (P-Yellow); Glucose Qualitative, Urine Neg (Neg); Ketones, Urine Neg (Neg); Leukocyte Esterase, Urine Neg (Neg); Protein, Urine Neg (Neg); Specific Gravity, Urine 1.005 (1.003-1.022); Urobilinogen, Urine NORM (Normal)
== END 2025-06-03 11:33 | disposition home or self-care (01) ==
LOC: ER 09:53
DX: R10.13 Epigastric pain (principal); G89.29 Other chronic pain; R30.0 Dysuria; I10 Essential (primary) hypertension; I25.2 Old myocardial infarction; F17.210 Nicotine dependence, cigarettes, uncomplicated; Z88.0 Allergy status to penicillin; Z88.1 Allergy status to other antibiotic agents; Z88.8 Allergy status to other drugs, medicaments and biological substances; Z91.018 Allergy to other foods; Z79.02 Long term (current) use of antithrombotics/antiplatelets; Z79.82 Long term (current) use of aspirin; Z79.899 Other long term (current) drug therapy
CPT/HCPCS: 80048; 81003; 85025; 93005; 93010; 99284-25

== ENCOUNTER 2025-08-19 14:03 | Emergency (ER) | payer OTHER ==
[~2025-08-19] VITALS: Ht 177.8 cm; Wt 52.2 kg
[2025-08-19 15:00] VITALS: BP 138/93
[2025-08-20] MEDS ORDERED: LOSA25 PO (09:50)
[2025-08-20] MEDS ORDERED: ROSUVASTATIN CA20 MG PO (09:51)
[2025-08-20] MEDS ORDERED: FAMO20 PO (09:51)
[2025-08-20] MEDS ORDERED: AMLO10 PO (09:51)
[2025-08-20] MEDS ORDERED: CLOP75 PO (09:51)
[2025-08-20] MEDS ORDERED: PANT40 PO (09:54)
== END 2025-08-19 17:13 | disposition home or self-care (01) ==
LOC: ER 14:03
DX: Z51.5 Encounter for palliative care (principal); K74.60 Unspecified cirrhosis of liver; I25.2 Old myocardial infarction; I10 Essential (primary) hypertension; I73.9 Peripheral vascular disease, unspecified; F17.210 Nicotine dependence, cigarettes, uncomplicated; Z88.0 Allergy status to penicillin; Z88.1 Allergy status to other antibiotic agents; Z88.8 Allergy status to other drugs, medicaments and biological substances; Z91.0110 Allergy to milk products, unspecified; Z79.82 Long term (current) use of aspirin; Z79.02 Long term (current) use of antithrombotics/antiplatelets; Z79.899 Other long term (current) drug therapy
CPT/HCPCS: 99284

== ENCOUNTER 2025-08-20 09:09 | Inpatient (IN) | payer OTHER ==
[~2025-08-20] VITALS: Ht 177.8 cm; Wt 50.0 kg
[2025-08-20] MEDS ORDERED: LOSA25 PO (09:50)
[2025-08-20] MEDS ORDERED: CLOP75 PO (09:51)
[2025-08-20] MEDS ORDERED: FAMO20 PO (09:51)
[2025-08-20] MEDS ORDERED: ROSUVASTATIN CA20 MG PO (09:51)
[2025-08-20] MEDS ORDERED: AMLO10 PO (09:51)
[2025-08-20] MEDS ORDERED: PANT40 PO (09:54)
[2025-08-20] MEDS ORDERED: NS 1,000 ML IV SCH (10:30)
[2025-08-20 11:13] LABS: BASOPHILS ABSOLUTE AUTO 0.01 K/mm3 (0.00-0.23); BASOPHILS PERCENT AUTO 0 % (0-2); EOSINOPHILS ABSOLUTE AUTO 0.00 K/mm3 (0.00-0.68); EOSINOPHILS PERCENT AUTO 0 % (0-6); Hematocrit 27.2 % (37.0-53.0); Hemoglobin 8.6 g/dL (13.5-17.5); IMMATURE GRAN ABSOLUTE AUTO 0.05 K/mm3 (0.00-0.10); IMMATURE GRAN PERCENT AUTO 0 % (0-1); LYMPHOCYTES ABSOLUTE AUTO 0.12 K/mm3 (0.84-5.20); LYMPHOCYTES PERCENT AUTO 1 % (21-46); MONOCYTES ABSOLUTE AUTO 0.73 K/mm3 (0.16-1.47); MONOCYTES PERCENT AUTO 5 % (4-13); Mean Corpuscular HGB Conc 31.6 g/dL (31.5-36.5); Mean Corpuscular Volume 74 fL (80-100); NEUTROPHILS ABSOLUTE AUTO 14.81 K/mm3 (1.96-9.15); NEUTROPHILS PERCENT AUTO 94 % (41-73); NRBC ABSOLUTE 0.07 K/mm3 (0.00-0.02); NRBC Auto 0.4 /100 WBC (0.0-0.2); Platelet Count 191 K/mm3 (150-400); RDW Coefficient Variation 15.7 % (11.7-14.2); RDW Standard Deviation 42.3 fL (35.1-46.3)
[2025-08-20 11:21] LABS: Source, Urine Clean Catch
[2025-08-20 11:31] LABS: Alanine Aminotransfer (ALT/SGP 128.0 U/L (12-78); Albumin, Blood 3.0 g/dL (3.4-5.0); Albumin/Globulin Ratio 1.0 (0.8-1.8); Anion Gap 10.0 mmol/L (3-11); Aspartate Aminotrans (AST/SGOT 34.0 U/L (12-37); Bilirubin, Total 1.0 mg/dL (0.1-1.0); Blood Urea Nitrogen 58.0 mg/dL (8-24); CO2, Blood 30.0 mmol/L (21-32); Calcium, Blood 8.8 mg/dL (8.5-10.1); Chloride, Blood 95.0 mmol/L (98-108); Creatinine, Blood 1.13 mg/dL (0.60-1.20); Globulin, Blood 3.1 g/dL (2.2-4.0); Glucose, Blood 141.0 mg/dL (70-99); Potassium, Blood 3.6 mmol/L (3.5-5.5); Sodium, Blood 131.0 mmol/L (136-145); Total Protein, Blood 6.1 g/dL (6.4-8.2)
[2025-08-20 11:34] LABS: Bilirubin, Urine Neg (Neg); Color, Urine Yellow (P-Yellow); Glucose Qualitative, Urine Neg (Neg); Ketones, Urine Neg (Neg); Leukocyte Esterase, Urine Neg (Neg); Protein, Urine 1+ (Neg); Specific Gravity, Urine 1.015 (1.003-1.022); Urobilinogen, Urine NORM (Normal)
[2025-08-20] MEDS ORDERED: FLU VACC TS2025(65UP)/MF59C/PF 45 MCG/0.5 ML SYRINGE IM SCH (16:10)
[2025-08-20 19:32] VITALS: BP 149/92
--- NOTE | 2025-08-20 23:08 | NUR ---
CALL PLACED TO PROVIDER: [facility] AT 2307 ON 08/20 REGARDING PTS REZA BOOTS ON BOTH LEGS. PROVIDER STATED TO LEAVE LEGS WRAPPED HOW THEY WERE AND LET THE ADMITTING PROVIDER WHO HE STATED IS TO DECIDE WHAT TO DO IN THE MORNING.
--- NOTE | 2025-08-21 00:02 | NUR ---
WHEN THE PT WAS SHAVING THE MAGY AREA OF THE PT THE PT ACCIDENTLY WAS CUT ANBD STARTED BLEEDING. THIS VALVE ASSEMBLER THEN INFORMED THE CHARGE NURSE AND WAS DIRECTED TO CLEAN THE AREA AND TAKE A PICTURE TO PUT IN THE CHART. A CONDOM CATH WAS APPLIED INSTEAD OF THE MALE PUREWIC. THE RIGHT HAND WOUND WAS CLEANED AND REDRESSED WITH CURLEX AND AN LUANN WRAP. A MEPALEX WAS APPLIED TO THE COCCYX. PICTURES WERE TAKEN AND PLACED IN CHART. A REQUEST WAS FAXED OVER TO [facility] FOR PTS MEDICATION LIST.
--- NOTE | 2025-08-21 03:33 | NUR ---
SHIFT SUMMARY: PT IS AOX2-3. PT HAS SEVERAL BOUTS OF CONFUSION WHEN ASKING QUESTIONS OR HAVING CONVERSATIONS WITH PT. CONDOM CATH IN PLACE AND DRAINING TO GRAVITY. PT Q2 TURNED AND MEPALEX IN PLACE ON COCCYX.
[2025-08-21 04:17] VITALS: BP 152/112
[2025-08-21 05:26] LABS: BASOPHILS ABSOLUTE AUTO 0.00 K/mm3 (0.00-0.23); BASOPHILS PERCENT AUTO 0 % (0-2); EOSINOPHILS ABSOLUTE AUTO 0.00 K/mm3 (0.00-0.68); EOSINOPHILS PERCENT AUTO 0 % (0-6); Hematocrit 26.3 % (37.0-53.0); Hemoglobin 8.1 g/dL (13.5-17.5); IMMATURE GRAN ABSOLUTE AUTO 0.03 K/mm3 (0.00-0.10); IMMATURE GRAN PERCENT AUTO 0 % (0-1); LYMPHOCYTES ABSOLUTE AUTO 0.74 K/mm3 (0.84-5.20); LYMPHOCYTES PERCENT AUTO 7 % (21-46); MONOCYTES ABSOLUTE AUTO 0.65 K/mm3 (0.16-1.47); MONOCYTES PERCENT AUTO 6 % (4-13); Mean Corpuscular HGB Conc 30.8 g/dL (31.5-36.5); Mean Corpuscular Volume 73 fL (80-100); NEUTROPHILS ABSOLUTE AUTO 9.89 K/mm3 (1.96-9.15); NEUTROPHILS PERCENT AUTO 88 % (41-73); NRBC ABSOLUTE 0.08 K/mm3 (0.00-0.02); NRBC Auto 0.7 /100 WBC (0.0-0.2); Platelet Count 159 K/mm3 (150-400); RDW Coefficient Variation 15.9 % (11.7-14.2); RDW Standard Deviation 41.2 fL (35.1-46.3)
[2025-08-21 05:58] LABS: Alanine Aminotransfer (ALT/SGP 98.0 U/L (12-78); Albumin, Blood 2.6 g/dL (3.4-5.0); Albumin/Globulin Ratio 0.9 (0.8-1.8); Anion Gap 9.0 mmol/L (3-11); Aspartate Aminotrans (AST/SGOT 27.0 U/L (12-37); Bilirubin, Total 1.2 mg/dL (0.1-1.0); Blood Urea Nitrogen 48.0 mg/dL (8-24); CO2, Blood 27.0 mmol/L (21-32); Calcium, Blood 8.8 mg/dL (8.5-10.1); Chloride, Blood 99.0 mmol/L (98-108); Creatinine, Blood 1.02 mg/dL (0.60-1.20); Globulin, Blood 2.8 g/dL (2.2-4.0); Glucose, Blood 100.0 mg/dL (70-99); Magnesium, Blood 2.2 mg/dL (1.6-2.4); Potassium, Blood 3.0 mmol/L (3.5-5.5); Sodium, Blood 132.0 mmol/L (136-145); Total Protein, Blood 5.4 g/dL (6.4-8.2)
--- NOTE | 2025-08-21 06:40 | NUR ---
PROVIDER NOTIFIED: NOTIFIED PROVIDER REGARDING DROP IN POTASSIUM FROM 3.6 TO 3.0. PROVIDER NEW GAVE ORDERS OVER PHONE.
[2025-08-21] MEDS ORDERED: NS 250 ML IV PRN (07:30)
[2025-08-21 07:49] VITALS: BP 150/110
[2025-08-21] MEDS ORDERED: Enoxaparin 40 MG/0.4 ML SYR SC SCH (09:00)
[2025-08-21] MEDS ORDERED: ALBU90OI INH (12:22)
[2025-08-21] MEDS ORDERED: BUPRENORP-NALO1 EAC1 SL (12:26)
[2025-08-21] MEDS ORDERED: DECADRON4 M1 PO (12:28)
[2025-08-21] MEDS ORDERED: LORA.5 PO (12:30)
[2025-08-21 16:20] VITALS: BP 127/89
[2025-08-21] MEDS ORDERED: METH5 PO (16:37)
[2025-08-21] MEDS ORDERED: MORP20L PO (16:39)
[2025-08-21] MEDS ORDERED: FURO20 PO (16:40)
[2025-08-21] MEDS ORDERED: LOSA50 PO (16:52)
--- NOTE | 2025-08-21 17:58 | NUR ---
PT A/OX4 WITH CONFUSION. WOUND DRESSINGS CHANGED TODAY AND REMIAN C/D/I. PT STATED HE DOES NOT REMEMBER WITHDRAWING FROM HOSPICE. WALKED INTO PTS ROOM THIS EVENING AND PT HAD HIS PHONE SUBMERGED IN A CUP OF WATER. WHEN ASKED WHY HE WAS DOING THIS PT STATED "I'M GOING TO ANYWAYS". PTS MOOD HAS BEEN LABILE THIS SHIFT. MED REC COMPLETED. NO ACUTE NEEDS AT THIS TIME.
[2025-08-21] MEDS ORDERED: Albuterol HFA200 ACT/6.7 GM INH INH PRN (18:05)
[2025-08-21 20:40] VITALS: BP 138/95
[2025-08-21] MEDS ORDERED: Buprenorphine HCL/Naloxone HCL 2-0.5MG 1 EA SL SCH (21:00)
[2025-08-22] MEDS ORDERED: LORazepam 2 MG/ML 1ML Injection IV ONE (04:45)
--- NOTE | 2025-08-22 04:58 | NUR ---
CALL PLACED TO PROVIDER: AROUND 0430 THE AIR HOSE COUPLER WENT INTO THE PTS ROOM GET VS. PT BECAME AGGITATED AND REFUSED VS. PT STATED HE IS REFUSING ALL CARE AND WANTS TO SEE SPIRITUAL CARE RIGHT NOW. THIS DIRECTOR CLINICAL DATA THEN WENT INTO PTS ROOM AND INFORMED PT i WOULD PUT IN A SPIRITUAL CARE ORDER FOR HIM. THE PT STATED HE WANTED A CODING CLERK NOW AND THAT HE WANTS TO . PT STATED THAT HE IS IN A LOT OF PAIN AND WANTS TO RIGHT NOW. PT OFFERED PN AND PT REFUSED. PT THEN STATED HE WANTED ME TO LEAVE THE ROOM SO THAT HE COULD . I THEN WENT AND GOT MY CHARGE NURSE AND HE WENT TO TALK TO PT. PT STATED HE WANTS TO OVER AND OVER. PT STATED HE DID NOT HAVE A PLAN BUT HE WANTS TO . i LEFT THE CHARGE NURSE AT BEDSIDE AND WENT TO CALL THE PROVIDER. DR. COLLADO PUT THE PT ON HIGH RISK SUICIDE PRECAUTIONS AND ASKED FOR A SITTER TO BE AT BEDSIDE. THE ROOM WAS THEN STRIPPED AND MITIGATED AND A SHORT CALL LIGHT WAS PROVIDED. BATHROOM IS LOCKED AND PERSONAL BELONGINGS ARE LOCKED IN THE CABINET IN THE ROOM. SITTER IS AT BEDSIDE.
--- NOTE | 2025-08-22 05:12 | NUR ---
SHIFT SUMMARY: PT IS AOX 2-3 AND IS A 1 PER AST. PT WAS PLEASENT AND ABLE TO MAKE NEEEDS KNOW AT THE STARTY OF SHIFT UNTIL ABOUT 0430 (SEE PREVIOUS NURSE NOTE). PT HAS A CONDOM CATH IN PLACE AND IS ON HIGH SUICIDE PRECAUTIONS WITH SITTER AT BEDSIDE.
--- NOTE | 2025-08-22 09:00 | NUR ---
BEDSIDE RN EXPRESSED CONCERNS RE: PT REFUSING MEDICATIONS AND HIS LEVEL OF AGGITATION INCREASING. RCV'D VERBAL ORDER FROM PROVIDER FOR A ONE TIME DOSE OF IM ZYPREXA FOR AGGITATION. HOPE IS ONCE AGGITATION IS LESSENED, PT WILL BE WILLING TO TAKE HOME MEDICATIONS FOR PAIN/ANXIETY. BEDSIDE RN UPDATED WITH NEW ORDER. PT REVOKED [facility] 2 DAYS PRIOR TO THIS [facility]. THIS PC RN CONFIRMED PT'S PAIN ANXIETY MEDICATIONS WITH HOSPICE CM. PT TAKES HIGH DOSES OF ANALGESICS FOR BASIC SYMPTOM MANAGEMENT. ABOVE STATED INFORMATION RELAYED TO PROVIDER. VERBAL ORDERS TO RESUME HOME HOSPICE RX'S RECEIVED AND PLACED ACCORDINGLY. THERAPUTIC LISTENING PROVIDED FOR PT'S DTR, PATY. PATY IS STRUGGLING SEEING PT IN DISTRESS AND SHE IS FEELING HOPELESS. THIS PC RN NORMALIZED HER FEELINGS, PROVIDED SUPPORT. PT AND DTR AGREEABLE TO CLERK ANALYST VISIT. OBTAINED A COPY OF POLST FROM [facility]. COPY SENT TO MEDICAL RECORDS, PLACED ON CHART AND SENT TO STATE REGISTRY. PC TO REMAIN AVAILABLE NEEDED.
--- NOTE | 2025-08-22 11:56 | NUR ---
Spiritual care visit conducted. The patient is resting in bed but awakens enough to acknowlege my presence (The patient is known to this Unstacker for over 20ys). I asked the patient if he would like prayer and he nodded to confirm. I gladly provided prayer. I also attempted to play his favorite kind of music on his phone which I was able to do. I will continue to remain available to the patient and family.
[2025-08-22] MEDS ORDERED: Morphine Sulfate 20 MG/1ML 1 ML Oral Syringe SL PRN (12:15)
--- NOTE | 2025-08-22 12:31 | NUR ---
Spiritual care visit conducted. After seeing the comfort care order, I visited with the daughter's of the patient (Cony and Isabella). They were tearful at times as we talked about the last couple of yrs and his decline. We also discussed the complicated relationships that the patient has with his 5 children. I provided therapeutic listening, gentle ip counsel and prayer. The dtr's responded well and showed signs of being comforted. I will remain available to the patient and family.
--- NOTE | 2025-08-22 14:16 | NUR ---
1:1 SITTER AT BEDSIDE AND PATIENT IS CALM AND RESPONSIVE. DENIES ANY SI. REPORTS THAT "GOD IS COMING," BUT DENIES ANY THOUGHTS OF HARMING SELF. PATIENT PLACED ON COMFORT CARE THIS AFTERNOON.
--- NOTE | 2025-08-22 15:52 | NUR ---
PATIENT TRANSITIONED TO COMFORT CARE THIS SHIFT. DENIES ANY THOUGHTS OF SI AND HIGH SI PRECAUTIONS WERE D/C'D. DAUGHTERS AT BEDSIDE THROUGHOUT THE DAY. PATIENT AGITATED THIS AM, BUT CALMED SIGNIFICANTLY WITH ZYPREXA. PATIENT CONTINUED TO REFUSED PAIN MANAGEMENT FOR MOST OF THE DAY, BUT OTHER FAMILY CAME IN AND PATIENT EVENTUALLY AGREED TO BETTER CONTROL SYMPTOMS AND REDUCE SUFFERING. INCONTINENT OF BOWEL/BLADDER THIS SHIFT. NO PO INTAKE TODAY. UNDERGROUND MINE SUPERINTENDENT AND PALLIATIVE CARE INVOLVED IN CARE TODAY. ADVANCE DIRECTIVE DROPPED OFF BY DAUGHTER AND PLACED IN CHART.
[2025-08-22] MEDS ORDERED: Sucralfate 1000MG / 10ML UD BTL PO SCH (16:30)
[2025-08-22] MEDS ORDERED: Atropine Sulfate 1% Opth Soln 2ML BTL SL PRN (20:30)
--- NOTE | 2025-08-23 03:25 | NUR ---
SHIFT SUMMARY: PT IS ON COMFORT CARE. PT MEDICATED EVERY HOUR WITH 20MG OF ROXANOL. ORDER OBTAINED FOR 2MG OF DILAUDID DUE TO PT STILL IN SEVERE PAIN. PT MEDICATED EVERY 2 HOURS WITH DILAUDID. PT ABLE TO SLEEP AND BE COMFORTFORABLE AFTER THAT. FAMILY AT BEDSIDE OVER NIGHT. DAUGHTER RICKEY CALLED AND GIVEN UPDATE REQUESTED.
--- NOTE | 2025-08-23 09:26 | NUR ---
ROUNDED ON PATIENT. FAMILY AT BEDSIDE. DISCUSSED WITH BSRN. PATIENT HAS BEEN COMFORTABLE. HE HAS BEEN REFUSING MEDICATIONS.
--- NOTE | 2025-08-23 15:35 | NUR ---
ASSUMED CARE. PT CURRENTLY ON COMFORT CARE AND IS CALM COMFORTABLE, NON RESPONSIVE. FAMILY ASKED TO HOLD OFF ON MEDS TO SEE IF HE WOULD WAKE UP FOR SON WHO HASNT SEEN PT IN SEVERAL YEARS. CONT TO MONITOR PT AND MEDICATE WHEN NEEDING MEDICATION
--- NOTE | 2025-08-23 19:30 | NUR ---
no change in condition. pt turned as needed, family at bedside pt medicated for pain air hunger and distress.
--- NOTE | 2025-08-24 06:39 | NUR ---
SHIFT SUMMARY; PATIENT GIVEN ALMOST HOURLY KWAKU. BUT STILL UNCHANGED ALL SHIFT. FAMILY IN ROOM ALL SHIFT.
--- NOTE | 2025-08-24 14:16 | NUR ---
PALLIATIVE COMFORT CARE VISIT: ROUNDED ON PT AT 1150 TODAY. SEVERAL FAMILY MEMBERS PRESENT. PT IS NON RESPONSIVE. BREATHING IS UNLABORED. PAIN FACES SCALE IS 0/10. FAMILY DENY CONCERNS. DISCUSS REMINISCING WITH PT DESPITE NON RESPONSIVENESS. FAMILY RECEPTIVE TO SUGGESTIONS. APPEAR TO BE GRIEVING APPROPRIATELY. DENY NEEDS. COMFORT CARE CART STOCKED WITH FRESH COFFEE AND ICE WANTER AND SNACKS. FAMILY DENY NEEDS AT THIS TIME.
--- NOTE | 2025-08-24 14:17 | NUR ---
ASSUMED CARE OF PT PT SLEEPING FAMILY AT BEDSIDE, PT TURNED AND DEEP SUCTIONED NEEDED. PT CONT TO HAVE PAIN WHEN TURNED, PT MANJU OUT AND MOANS WHEN TURNED WILL TRY TO INCREASED INTERVAL FOR MEDICATION. FAMILY IS AWARE, AND THANKFUL.
--- NOTE | 2025-08-24 14:18 | NUR ---
PT CONT TO MOAN WHEN TURNED GRASPING AND TENSING BODY, MEPILEX APPLIED TO ELBOWS FOR INCREASED PROTECTION. BREAKDOWN INCREASING EVEN THOUGH TURNED OFTEN.
--- NOTE | 2025-08-24 18:48 | NUR ---
PT CONT TO HAVE VERY LITTLE CHANGE IN MENTATION. RESPIRATIONS MORE AT EASE BUT GRIMACES AND MOANS WHEN EVER TOUCHED OR TURNED, PT VERY TENSE AND SEEMS UNCOMFORTABLE, WILL CONT TO MONITOR AND MEDICATE. FAMILY AT BEDSIDE .
--- NOTE | 2025-08-25 05:27 | NUR ---
SHIFT SUMMARY NOC PT UNRESPONSIVE. ON COMFORT CARE MEASURES. FAMILY BEDSIDE FOR ENTIRETY OF SHIFT. PT BEING MEDICATED Q2H/PRN FOR Q2H/PRM TURNING. PT HAD SMALL INCONTINENT BM DURING SHIFT. PT CURRENTLY RESTING WITH BED LOCKED IN LOWEST POSITION, AND CALL LIGHT WITHIN REACH.
--- NOTE | 2025-08-25 15:11 | NUR ---
PT TRANSFERED TO ROOM 333, REPORT GIVEN TO RN ASSUMING CARE OF PT. PT MEDICATED PER EMAR TO MAINTAIN COMFORT. REPOSITIONING COMPLETED Q2H, ORAL CARE COMPLETED Q4H. WOUND CARE COMPLETED TO COCCYX AND R WRIST. ULCER TO BLE LEFT KACY DUE TO DRESSING CAUSING PT AGITATION. FAMILY AT BEDSIDE WITH PT AT TIME OF TRANSPORT. PROVIDER NOTIFIED OF ROOM CHANGE.
--- NOTE | 2025-08-25 16:36 | NUR ---
PALLIATIVE COMFORT CARE SUPPORTIVE VISIT MADE: PT HAS SEVERAL FAMILY MEMBERS PRESENT. PT CONTINUES TO BE NON RESPONSIVE. HE IS HAVING 4-5 SECOND APNEIC EPISODES DURING THIS VISIT. PT APPEARS COMFORTABLE AT REST. REVIEWED MEDICATION ADMINISTRATION AND RN NOTES PRIOR TO VISIT AND HE IS RECEIVING ROXANOL 20 MG SL APPROX EVERY TWO HOURS AND REPORTED TO BE YELLING OUT WITH REPOSITIONING/ADL CARES. PT IS NOT RECEIVING ATIVAN REGULARLY. SUGGESTED TO PRIMARY RN TO GIVE ATIVAN MIXED WITH ROXANOL Q3-4 HOURS TO SEE IF IT AIDS IN COMFORT. FAMILY EDUCATED ON END OF LIFE CHANGES AND WHAT TO EXPECT. FAMILY APPEAR TO BE GRIEVING APPROPRIATELY. FAMILY AGREES WITH POC TO INCREASE AMOUNT OF LORAZEPAM TO BE GIVEN FOR COMFORT.
--- NOTE | 2025-08-25 19:54 | NUR ---
PT PASSED AT 1935 WITH FAMILY AT BEDSIDE. THIS LN WITH 2ND RN VERIFIED. CHARGE NURSE AND PROVIDER MAD AWARE.
== END 2025-08-25 19:35 | DRG 641 ==
LOC: ER 09:09 → MEDS 16:05
PROVIDERS: Emergency Medicine; ADMIT Internal Medicine
DX: E44.0 Moderate protein-calorie malnutrition (principal); E87.1 Hypo-osmolality and hyponatremia; Z68.1 Body mass index [BMI] 19.9 or less, adult; R64 Cachexia; I10 Essential (primary) hypertension; Z66 Do not resuscitate; I25.2 Old myocardial infarction; D64.9 Anemia, unspecified; E86.0 Dehydration; R54 Age-related physical debility; Z51.5 Encounter for palliative care; K21.9 Gastro-esophageal reflux disease without esophagitis; N40.0 Benign prostatic hyperplasia without lower urinary tract symptoms; I73.9 Peripheral vascular disease, unspecified; I25.10 Atherosclerotic heart disease of native coronary artery without angina pectoris; M06.9 Rheumatoid arthritis, unspecified; J43.9 Emphysema, unspecified; F17.210 Nicotine dependence, cigarettes, uncomplicated; F10.10 Alcohol abuse, uncomplicated; K70.0 Alcoholic fatty liver; Z95.5 Presence of coronary angioplasty implant and graft; Z82.49 Family history of ischemic heart disease and other diseases of the circulatory system; Z86.19 Personal history of other infectious and parasitic diseases; Z98.890 Other specified postprocedural states; Z79.02 Long term (current) use of antithrombotics/antiplatelets; Z79.899 Other long term (current) drug therapy; Z88.1 Allergy status to other antibiotic agents; Z88.8 Allergy status to other drugs, medicaments and biological substances
CPT/HCPCS: 36415; 80053; 82140; 83735; 84100; 85025; 94760; 99285; A9270; J0572; J1650; J3480; J7030; J7050